=== PATIENT | female | born 1970 | race Hispanic/Latino ===

== ENCOUNTER 2017-12-25 03:43 | Inpatient (IN) | payer MEDICAID ==
--- NOTE | 2017-12-25 04:21 | C.PDOC ---
History Of Present Illness 47 yo female w/PMhx of bipolar, depression, non-complaint with medication, transfer from [facility] for admission to service with Dx: Depression, suicidal ideation. Pt admits, ; was not feeling good for past few months, non-complaint with my depression medication". Pt admits, (+) suicidal ideation, no attempts. Otherwise, pt denies any other active physical complaints. At the time of evaluation, pt appears comfortable, appropriate, not in nay apparent distress. Time Seen by Provider: 12/25/17 03:56 Chief Complaint (Nursing): Psychiatric Evaluation History Per: Patient, Other (transfer pappers) Past Medical History Reviewed: Historical Data, Nursing Documentation, Vital Signs Vital Signs: Last Vital Signs Temp 97.8 F 12/25/17 03:48 Pulse 75 12/25/17 03:48 Resp 16 12/25/17 03:48 BP Pulse Ox 97 12/25/17 03:48 - Medical History PMH: Depression Family History: States: No Known Family Hx - Social History Hx Tobacco Use: No Hx Alcohol Use: Yes Hx Substance Use: No - Immunization History Hx Influenza Vaccination: No Hx Pneumococcal Vaccination: No Review Of Systems Except As Marked, All Systems Reviewed And Found Negative. Constitutional: Negative for: Fever, Chills Eyes: Negative for: Vision Change ENT: Negative for: Throat Pain Cardiovascular: Negative for: Chest Pain, Palpitations, Edema, Light Headedness Respiratory: Negative for: Cough, Shortness of Breath, SOB with Excertion, Wheezing Gastrointestinal: Negative for: Nausea, Vomiting, Abdominal Pain, Diarrhea Genitourinary: Negative for: Dysuria Musculoskeletal: Negative for: Neck Pain, Back Pain Neurological: Negative for: Weakness, Numbness, Altered Mental Status, Headache , Dizziness Psych: Positive for: Depression Physical Exam - Physical Exam Appears: Well, Non-toxic, No Acute Distress Skin: Normal Color, Warm, Dry, No Rash, No Ecchymosis Head: Atraumatic, Normacephalic Eye(s): bilateral: PERRL Ear(s): Bilateral: Normal Nose: No Flaring, No Discharge Oral Mucosa: Moist, No Drooling Throat: No Drooling Neck: Trachea Midline, No Midline Cervical Tenderness, No Paracervical Tenderness, No Step Off Deformity, Supple Cardiovascular: Rhythm Regular, No Murmur, No JVD Respiratory: No Decreased Breath Sounds, No Accessory Muscle Use, No Stridor, No Wheezing Gastrointestinal/Abdominal: Soft, No Tenderness, No Distention, No Guarding Back: No CVA Tenderness Extremity: Normal ROM, No Pedal Edema, No Deformity Neurological/Psych: Oriented x3, Normal Speech ED Course And Treatment O2 Sat by Pulse Oximetry: 97 Pulse Ox Interpretation: Normal Progress Note: Transfer papers review, including blood work, EKG, CXR and appears normal without acute findings. Case was discussed with prior to transfer and accepted for admission to psych floor at [facility] s/o with Dx: Depression, suiciadal ideation. Pt agrees with plan. Disposition - Disposition Disposition: HOSPITALIZED Disposition Time: 04:18 Condition: STABLE - Clinical Impression Clinical Impression: Depression
[2017-12-25] MEDS ORDERED: Pneumococcal 23-Valent Vaccine IM ONE ×2 (05:40→08:45)
--- NOTE | 2017-12-25 05:48 | PCM.BM ---
<TorrieNick - Last Filed: 12/25/17 05:45> Treatment Plan Problems - Problems identified on initial assessmt DEPRESSION Date Initiated: 12/25/17 Time Initiated: 05:30 Assessment reference: NA Status: Active SUICIDAL IDEATION Date Initiated: 12/25/17 Time Initiated: 05:30 Assessment reference: NA Status: Active Treatment assets and liabiliti Patient Assests: adapts well, cooperative, educated, self-reliant, ADL independent, good support system, negotiates basic needs, financial stabiity Patient Liabilities: dietary restrictions, other (non-compliant of her psych medications) - Milieu Protocol Maintain good personal hygiene: daily Encourage regular showers, daily Remind patient to perform daily oral care, daily Assist patient to perform ADL's Maintain personal safety: every shift Educate patient to report safety concerns to staff, every shift Monitor environment for contraband/sharps Medication safety: Monitor for expected outcome, potential side effects: every shift, Assess barriers to learning: every shift, Assess readiness for medication education: every shift <Anahi Choi - Last Filed: 12/25/17 15:06> Family Contact Family involvement: Famliy/SO not involved Family contact: Patient declines to allow family contact at present - Goals for Treatment Patient goals for treatment: "I want to attend an outpatient program." Discharge/Continuing Care - Education Needs Education Needs: Patient Medication, Patient Coping Skills - Discharge Discharge Criteria: Tolerates medication w/o severe side effects, Free of Suicidal thoughts, Normal sleep pattern, Ability to care for self, Reduction of target symptoms Discharge to:: Home - Treatment Team Participation Discussed with Family/SO: No Was Patient/Family/SO present at Treatment Team Meeting: Yes <Juani Lopez - Last Filed: 12/29/17 12:45> - Diagnosis (1) Bipolar affective, mixed, severe Status: Acute Interventions: 12/29/17 12:45 * Assess/adjust medications daily and /or as needed * See patient on an individual basis 7x/week to assess level of manic behaviors and stability * Discuss risks, benefits, side effects and alternatives of medications *
[2017-12-25] MEDS ORDERED: Influenza Vaccine 60 mcg/0.5 mL SYR (4YR UP) IM ONE (07:45)
--- NOTE | 2017-12-25 10:58 | PCM.PSYCH ---
Initial Psychiatric Evaluation - Initial Psychiatric Evaluation Type of Admission: Voluntary Legal Status: Capacity Chief Complaint (in patient's own words): I was feeling depressed and suicidal.' History of Present Illness and Precipitating Events: This is a 47 year old Female, with PMHx of Depression, who was transferred from [facility], because of depressed and suicidal ideation. Pt reports her brain has been racing 100 miles per hour. Before going to ED, she drove around [place] for 15 hours. She states, she "wants to escape everything." Patient states she has been experiencing worsening depression since August 2017. She had not been taking her Zoloft medication for some jaky ; she started retaking the medication last week. She states the medication has been making her feel more irritable and agitated. She feels that she has been feeling very overwhelmed lately. She states she has never attempted suicide before. She reports of hearing her own voice telling her to do different things and reports some paranoia. Patient has been experiencing difficulty sleeping for the past few months. She is not able to sleep for few days. When she lays down to sleep, she has racing thoughts. Patient states she has "not been able to calm myself down." She finds that when she has not slept, she feels better than if she were to have gotten a full night of sleep. She also reports a lot ideas coming to her mind. Patient has previously psychiatric hospitalization 8 years ago for Depression. 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 Her daughter lives with her half the week and occasionally her son stays with her. She denies alcohol consumption. She denies illicit drug use. PMHx: Depression Medications: Zoloft 50mg Allergies: Latex, Gluten, Lactose Social History: Lives with daughter for only part of the week. Two children, daughter 17 and son 18. Works as a safety aide. Denies alcohol, illicit drug, and tobacco use. Past Psychiatric History - Past Psychiatric History Previous Treatment History: Inpatient Prior Psychiatric Treatment: Inpatient hospitalization 9 years ago for Depression Nature of Treatment: Depression History of ETOH/Drug Use: Denies. Pertinent Medical Hx (Current Medical&Sleep Prob, Allergies): Allergies Allergy/AdvReac Type Severity Reaction Status Date / Time latex Allergy Verified 12/25/17 04:08 gluten AdvReac Verified 12/25/17 04:08 lactose AdvReac Verified 12/25/17 04:08 Acetaminophen/Diphenhydramine [Tylenol Pm Ex-Strength Caplet] 2 tab PO HS Sertraline [Zoloft] 50 mg PO DAILY 12/25/17 Review of Systems - Review of Systems All systems: reviewed and no additional remarkable complaints except - Psychiatric Psychiatric: Anxiety, Auditory Hallucinations, Irritability, Paranoia, Suicidal Ideation Mental Status Examination - Personal Presentation Personal Presentation: Looks stated age - Affect Affect: Constricted, Depressed - Motor Activity Motor Activity: Psychomotor Retardation - Reliability in Providing Information Reliability in Providing Information: Poor, due to alteration in thoughts, Poor , due to altered mood - Speech Speech: Organized - Mood Mood: Depressed, Anxious - Formal Thought Process Formal Thought Process: Hallucinations, Flight of ideas, Circumstantial - Hallucinations/Delusions Hallucinations: Auditory - Obsessions/Compulsions Obsessions: No Compulsions: No - Cognitive Functions Orientation: Person, Place, Situation, Time Sensorium: Alert Attention/Concentration: Attentive Abstract Thinking: Louisa Estimate of Intelligence: Below average Judgement: Imparied, as evidence by: Poor judgement, Imparied, as evidence by: Lack of insight into illness - Risk Risk: Suicidal, Diminished functioning - Strength & Assets Inventory Strength & Assets Inventory: Family support DSM 5 DX - DSM 5 DSM 5 Diagnosis: Bipolar disorder manic severe with psychotic features - Recommended/Plan of Treatment Treatment Recommendations and Plan of Treatment: Bipolar disorder manic severe with psychotic features CBT Psychoeducation Supportive therapy, group therapy, individual therapy Depakote 250 mg PO BID Ativan 1 mg PO Q 6hr prn Seroquel 50 mg by mouth daily at bedtime - Smoking Cessation Smoking Cessation Initiated: No
[2017-12-25] MEDS: Divalproex 250 mg DR Tab PO SCH ×2 (12:26→17:47)
[2017-12-26] MEDS: Divalproex 250 mg DR Tab PO SCH ×2 (10:08→17:42)
--- NOTE | 2017-12-26 23:49 | PCM.PYCHPN ---
Psychiatric Progress Note - Psychiatric Progress Note Patient seen today, length of contact: 16 min Patient Chief Complaint: I was still feeling depressed.' Problems Identified/Issues Discussed: Patient seen and evaluated, chart reviewed and discussed with the nurse. Patient still reports racing of thoughts and flight of ideas. She remained isolated, confined and withdrawn. She reports depressed mood and feelings of hopelessness and helplessness. Patient is compliant with medications and denies any side effects. Symptoms are improving but need more time to stabilize. Support and psychoeducation given. Medication Change: Yes (increase seroquel) Medical Record Reviewed: Yes Mental Status Examination - Cognitive Function Orientation: Person, Place, Situation, Time Memory: Intact Attention: WNL Concentration: Poor Association: Loose Fund of Knowledge: Poor - Mood Mood: Depressed, Anxious - Affect Affect: Constricted, Depressed - Speech Speech: Soft - Formal Thought Process Formal Thought Process: Hallucinations, Loosening of associations, Flight of ideas, Circumstantial - Suicidal Ideation Suicidal Ideation: No - Homicidal Ideation Homicidal Ideation: No Goal/Treatment Plan - Goal/Treatment Plan Need for Continued Stay: Severe depression anxiety, Severe functional impairment Progress Toward Problem(s) and Goals/Treatment Plan: Bipolar disorder manic severe with psychotic features CBT Psychoeducation Supportive therapy, group therapy, individual therapy Depakote 250 mg PO daily Depakote 500 mg PO HS Ativan 1 mg PO Q 6hr prn Seroquel 100 mg by mouth daily at bedtime - Smoking Cessation Smoking Cessation Initiated: No
[2017-12-27] MEDS: Divalproex 250 mg DR Tab PO SCH (09:17)
--- NOTE | 2017-12-27 16:02 | PCM.PYCHPN ---
Psychiatric Progress Note - Psychiatric Progress Note Patient seen today, length of contact: 15 minutes Patient Chief Complaint: I'm feeling much better. Problems Identified/Issues Discussed: Patient seen, chart reviewed, case discussed with the staff. Issues related to illness and treatment were discussed with the patient. Reported compliant with treatment with no adverse affects. Reported feeling better now. Mood reported as okay. Affect appropriate. Awake alert oriented 3, no delusions, no auditory or visual hallucinations, no suicidal ideations or homicidal ideations at the time of evaluation. Aftercare discussed with the patient. Medical Problems: None reported Diagnostic Results: Reviewed DSM 5 Symptoms Update: Improving with treatment Medication Change: No Medical Record Reviewed: Yes Mental Status Examination - Cognitive Function Orientation: Person, Place, Situation, Time Memory: Intact Attention: WNL Concentration: WNL Association: WN Fund of Knowledge: [facility] Decription of patient's judgement and insights: Fair - Mood Mood: Neutral - Affect Affect: Other (Appropriate) - Speech Speech: Soft - Formal Thought Process Formal Thought Process: No Impairment Psychotic Thoughts and Behaviors: None - Suicidal Ideation Suicidal Ideation: No - Homicidal Ideation Homicidal Ideation: No Goal/Treatment Plan - Goal/Treatment Plan Need for Continued Stay: Remain at risks for inpatient hospitalization, Discharge may exacerbated symptoms, Severe functional impairment Progress Toward Problem(s) and Goals/Treatment Plan: Patient education Supportive therapy Continue treatment as before Estimated Date of D/C: 12/28/17 - Smoking Cessation Smoking Cessation Initiated: No
[2017-12-27] MEDS: Divalproex 500 mg DR Tab PO SCH (21:41)
--- NOTE | 2017-12-28 08:01 | PCM.PYCHPN ---
Psychiatric Progress Note - Psychiatric Progress Note Patient seen today, length of contact: 15 minutes Patient Chief Complaint: I was still feeling depressed.' Problems Identified/Issues Discussed: Patient seen and evaluated, chart reviewed and discussed with the nurse. Patient still reports racing of thoughts and flight of ideas. She remained isolated, confined and withdrawn. She reports depressed mood and feelings of hopelessness and helplessness. Patient is compliant with medications and denies any side effects. Symptoms are improving but need more time to stabilize. Support and psychoeducation given. Medication Change: No Medical Record Reviewed: Yes Mental Status Examination - Cognitive Function Orientation: Person, Place, Situation, Time Memory: Intact Attention: WNL Concentration: WNL Association: WN Fund of Knowledge: WNL - Mood Mood: Neutral - Affect Affect: Other (Appropriate) - Speech Speech: Soft - Formal Thought Process Formal Thought Process: No Impairment - Suicidal Ideation Suicidal Ideation: No - Homicidal Ideation Homicidal Ideation: No Goal/Treatment Plan - Goal/Treatment Plan Need for Continued Stay: Remain at risks for inpatient hospitalization, Discharge may exacerbated symptoms, Severe functional impairment Progress Toward Problem(s) and Goals/Treatment Plan: Bipolar disorder manic severe with psychotic features CBT Psychoeducation Supportive therapy, group therapy, individual therapy Depakote 250 mg PO daily Depakote 500 mg PO HS Ativan 1 mg PO Q 6hr prn Seroquel 100 mg by mouth daily at bedtime Estimated Date of D/C: 12/28/17
[2017-12-28] MEDS ORDERED: Influenza Vaccine 60 mcg/0.5 mL SYR (4YR UP) IM ONE (10:00)
[2017-12-28] MEDS: Divalproex 250 mg DR Tab PO SCH (10:24)
[2017-12-28] MEDS: Divalproex 500 mg DR Tab PO SCH (22:00)
[2017-12-29 06:53] VITALS: RESP 20; TEMP 98.3; O2SAT 95
[2017-12-29 08:28] VITALS: BP 102/70; PULSE 91
[2017-12-29] MEDS: Divalproex 250 mg DR Tab PO SCH (11:02)
--- NOTE | 2017-12-29 11:37 | PCM.PYCHDC ---
Mental Status Examination - Mental Status Examination Orientation: Person, Place, Situation, Time Discharge Summary - Discharge Note Psychiatric History (includes Medical, Family, Personal Hx): Depression Consultations:: List each consultation separately and include: 1. Reason for request. 2. Findings. 3. Follow-up Summary of Hospital Course include:: 1. Description of specific treatment plan utilized for patients during their course of treatmen. 2. Summarize the time- course for resolution of acute symptoms and/or regressed behaviors. 3. Describe issues identified and worked on during hospitalization. 4. Describe medication utilized. 5. Describe medical problems identified and treated. 6. Reassessment of suicide risk Summary of Hospital Course: This is a 47 year old Female, with PMHx of Depression, who was transferred from [facility], because of depressed and suicidal ideation. Pt reports her brain has been racing 100 miles per hour. Before going to ED, she drove around [place] for 15 hours. She states, she "wants to escape everything." Patient states she has been experiencing worsening depression since August 2017. She had not been taking her Zoloft medication for some jaky ; she started retaking the medication last week. She states the medication has been making her feel more irritable and agitated. She feels that she has been feeling very overwhelmed lately. She states she has never attempted suicide before. She reports of hearing her own voice telling her to do different things and reports some paranoia. Patient has been experiencing difficulty sleeping for the past few months. She is not able to sleep for few days. When she lays down to sleep, she has racing thoughts. Patient states she has "not been able to calm myself down." She finds that when she has not slept, she feels better than if she were to have gotten a full night of sleep. She also reports a lot ideas coming to her mind. Patient has previously psychiatric hospitalization 8 years ago for Depression. 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 Her daughter lives with her half the week and occasionally her son stays with her. She denies alcohol consumption. She denies illicit drug use. PMHx: Depression Medications: Zoloft 50mg Allergies: Latex, Gluten, Lactose Social History: Lives with daughter for only part of the week. Two children, daughter 17 and son 18. Works as a certified nurses aide. Denies alcohol, illicit drug, and tobacco use. - Final Diagnosis (DSM 5) Condition upon Discharge: STABLE Disposition: HOME/ ROUTINE Follow-up Treatment Plan: Bipolar disorder manic severe with psychotic features CBT Psychoeducation Supportive therapy, group therapy, individual therapy Depakote 250 mg PO daily Depakote 500 mg PO HS Ativan 1 mg PO Q 6hr prn Seroquel 100 mg by mouth daily at bedtime Prescriptions/Medication Reconciliation: Divalproex [Depakote DR] 250 mg PO DAILY #30 tcp Divalproex [Depakote DR] 500 mg PO HS #30 tcp QUEtiapine [SEROquel] 50 mg PO HS #30 tab
== END 2017-12-29 11:45 | disposition home or self-care (01) | DRG 430 ==
LOC: C.ER 03:43 → C.5E 04:17
PROC: GZHZZZZ Group Psychotherapy (ICD-10-PCS; principal; 2017-12-25)
PROC: GZ58ZZZ Individual Psychotherapy, Cognitive-Behavioral (ICD-10-PCS; 2017-12-25)
PROC: GZ56ZZZ Individual Psychotherapy, Supportive (ICD-10-PCS; 2017-12-25)
DX: F31.2 Bipolar disorder, current episode manic severe with psychotic features (principal); R45.851 Suicidal ideations